=== PATIENT | male | born 1955 | race Caucasian/White ===

== ENCOUNTER 2020-01-18 18:41 | Emergency (ER) | payer OTHER ==
[2020-01-18 20:15] LABS: #Eosinphils 0.2 thou/uL (0.0-0.7); #Lymphocytes 1.2 thou/uL (1.20-3.40); #Monocytes 0.9 thou/uL (0.11-0.59); #Neutrophils 5.5 thou/uL (1.40-6.50); %Basophils 0.6 % (0.0-1.0); %Eosinophils 2.1 % (0.0-10.0); %Lymphocytes 15.7 % (21.0-51.0); %Monocytes 11.5 % (0.0-10.0); %Neutrophils 70.1 % (42.0-75.0); Hemoglobin 13.1 g/dL (14.0-18.0); Mean Corpuscular HGB CONC 33.3 g/dL (32.0-36.0); Mean Platelet Volume 5.7 fL (7.4-10.4); Platelet Count 334 thou/uL (130-400); RBC Distribution Width 12.3 % (11.5-14.5); Red Blood Cell (RBC) Count 4.09 mill/uL (4.70-6.10); White Blood Cell (WBC) Count 7.8 thou/uL (4.8-10.8)
[2020-01-18 20:37] LABS: ALT (SGPT) 11 U/L (8-55); AST (SGOT) 14 U/L (5-34); Albumin 3.3 g/dL (3.4-4.8); Alkaline Phosphatase 82 U/L (40-110); Anion Gap 11 mmol/L (10-20); BUN (Urea Nitrogen) 13 mg/dL (8.4-25.7); Bilirubin, Total 0.2 mg/dL (0.2-1.2); Calc. Creatinine Clearance 0 mL/min (70-130); Calcium 8.7 mg/dL (7.8-10.44); Carbon Dioxide 21 mmol/L (23-31); Chloride 108 mmol/L (98-107); Estimated GFR-MDRD Greater than 90; Globulin 3.2 g/dL (2.4-3.5); Glucose 99 mg/dL (80-115); Potassium 4.2 mmol/L (3.5-5.1); Protein, Total 6.5 g/dL (5.8-8.1); Sodium 136 mmol/L (136-145)
[2020-01-18] MEDS ORDERED: tiZANidine HCl 4 MG TAB PO SCH (23:45)
[2020-01-19] MEDS ORDERED: traMADol HCl 50 MG TAB ONE (00:04)
== END 2020-01-19 00:14 | disposition home or self-care (01) ==
LOC: ERS 18:41
DX: T81.89XA Other complications of procedures, not elsewhere classified, initial encounter (principal); M19.90 Unspecified osteoarthritis, unspecified site; F32.9 Major depressive disorder, single episode, unspecified; F41.9 Anxiety disorder, unspecified; Z87.891 Personal history of nicotine dependence; Z79.899 Other long term (current) drug therapy
CPT/HCPCS: 36415; 80053; 83605; 85025; 99283

== ENCOUNTER 2020-02-22 09:46 | Outpatient (CLI) | payer OTHER ==
--- NOTE | 2020-02-22 10:03 | RAD ---
EXAM: 3 view cervical spine PROVIDED CLINICAL HISTORY: Postop COMPARISON: CT 12/16/2019 FINDINGS: Interval laminectomy changes from C3 through C5. Grade 1 anterolisthesis C4 on C5. Reversal of normal cervical lordosis. Vertebral body heights appear preserved. Disc space narrowing and endplate degenerative change at C4-5, C5-6 and C6-7 redemonstrated. No prevertebral soft tissue swelling appar ent. Visualized lung apices appear clear. IMPRESSION: Postoperative and degenerative change as above.
== END 2020-02-22 09:47 | disposition home or self-care (01) ==
LOC: TBSIIMAG 09:46
PROVIDERS: ATTEND Neurological Surgery
DX: M47.22 Other spondylosis with radiculopathy, cervical region (principal); Z98.890 Other specified postprocedural states
CPT/HCPCS: 72040

== ENCOUNTER 2020-04-07 12:36 | Outpatient (CLI) | payer OTHER ==
--- NOTE | 2020-04-07 14:54 | RAD ---
LUMBAR SPINE 3 VIEWS: INDICATION: History of lumbar spondylolisthesis. COMPARISON: Prior exam dated 11/29/2019. FINDINGS: The bilateral pars defect at L4 with grade I anterolisthesis appears similar-appearing. Advanced mul tilevel degenerative disk disease and facet osteoarthritic change is similar-appearing. Mild retroli sthesis is seen on L3 on L4 and L2 on L3 and L1 on L2 as well as T12 on L1. There is slight reductio n of the retrolisthesis of L1 on L2 and T12 on L1 with flexion without appreciable exacerbation with extension. IMPRESSION: 1. Severe multilevel spondylosis of the lumbar spine with bilateral pars defects at L4 with grade I anterolisthesis. No abnormal translational motion is evident at L4-5. 2. Mild retrolisthesis of T1 on L1, L1 on L2, L2 on L3, and L3 on L4 with the retrolisthesis of L1-L 2 and T12-L1 slightly reducing with flexion. POS: BH
--- NOTE | 2020-04-07 17:05 | MRI ---
MR OF THE LUMBAR SPINE WITHOUT CONTRAST: 04/07/20 INDICATION: History of right sided foot drop for eight months with history of a fall. COMPARISON: Lumbar radiograph dated 04/07/20. FINDINGS: No acute fracture is evident. There are bilateral pars defects at L4 with grade I anterolisthesis. Th ere is mild retrolisthesis of L3 on L4, L2 on L3, and L1 on L2 and T12 on L1. There is a prominent cystic abnormality seen adjacent to the right kidney possibly originating from t he liver or right kidney. An additional T2 hyperintense lesion is seen in the right hepatic lobe cheng uring 1.3 cm. The cystic abnormality adjacent to the right kidney measures 10.4 cm. There is a small partially imaged cystic abnormality involving the superior pole of the left kidney measuring approxim ately 1.3 cm. At L5-S1, there is severe facet joint degenerative change, right greater than left with a broad based bulge and loss of disc space height inducing mild left neural foraminal narrowing. At L4-5, there is grade I anterolisthesis. There is a broad based pseudobulge and loss of disc space heights inducing mild to moderate bilateral neural foraminal narrowing. At L3-4, there is a broad based disc osteophyte complex with facet hypertrophy inducing mild central canal narrowing and mild bilateral neural foraminal narrowing. At L2-3, there is a broad based disc osteophyte complex and facet joint degenerative change inducing mild neural foraminal narrowing bilaterally. At L1-2, there is a broad based disc osteophyte complex with a superimposed right paracentral disc ex trusion causing mild encroachment on the right lateral recess without definite impingement of the tra versing right L2 nerve root. The disc osteophyte complex and facet hypertrophy induces mild to modera te right neural foraminal narrowing. At T12-L1, there is a broad based disc osteophyte complex causing mild central canal narrowing. There is a superimposed right paracentral disc extrusion measuring 1.0 x 0.9 cm. Best seen on image 11 of series 3 and image 14 of series 6 causing mild effacement of the right ventral lateral thecal sac wit hout definite nerve root impingement. Broad based disc osteophyte complex and facet hypertrophy induc es mild bilateral neural foraminal narrowing. At T11-12, there is an asymmetric left disc osteophyte complex inducing mild bilateral neural forami nal narrowing. There is also mild effacement of the subarachnoid space without cord compression. IMPRESSION: 1. Severe multilevel spondylosis of the lumbar spine. 2. Right paracentral caudad extending disc extrusion at L1-2 induces mild to moderate narrowing of the right lateral recess without definite impingement of the traversing right L2 nerve root. 3. Right paracentral inferior projecting disc extrusion at T12-L1 with mild effacement of the th ecal sac but no appreciable nerve root impingement. 4. Multilevel neural foraminal narrowing most pronounced at L4-5. There is bilateral pars defect s at L4-5 with grade I anterolisthesis. 5. Prominent cystic abnormalities, adjacent to the right kidney possibly related to an inferior projecting hepatic cyst or right renal cyst. Further evaluation with CT of the abdomen and pelvis wit h and without contrast is recommended for further characterization. There are additional cystic type abnormalities that require further evaluation in the superior pole of the left kidney as well as the right hepatic lobe. Code T POS: JACOBO
== END 2020-04-07 12:37 | disposition home or self-care (01) ==
LOC: TBSIIMAG 12:36
PROVIDERS: ATTEND Neurological Surgery
DX: M43.16 Spondylolisthesis, lumbar region (principal); M47.816 Spondylosis without myelopathy or radiculopathy, lumbar region; M43.14 Spondylolisthesis, thoracic region; M43.06 Spondylolysis, lumbar region; M43.15 Spondylolisthesis, thoracolumbar region; M51.26 Other intervertebral disc displacement, lumbar region; N28.1 Cyst of kidney, acquired
CPT/HCPCS: 72100; 72148

== ENCOUNTER 2020-05-18 08:41 | Outpatient (CLI) | payer OTHER ==
--- NOTE | 2020-05-18 10:33 | CT ---
CT Abdomen Pelvis WO Con: 05/18/2020 12:00 AM HISTORY: Hepatitis C and drug abuse. History of cyst seen on MRI. COMPARISON: MRI lumbar spine 04/07/2020 TECHNIQUE: Multiple contiguous axial images were obtained and a CT of the abdomen and pelvis without IV contrast . IV access could not be obtained for contrast. Oral contrast was administered. 6Coronal and sagittal reformats were performed. FINDINGS: This examination is limited for the evaluation of solid organs and vascular structures due to the lac k of intravenous contrast. Lower Chest: within normal limits. Abdomen: There is a large 14.7 cm cyst which abuts the right lower liver and the right kidney. It is difficult to determine from which organ this cyst arises but the cyst appears benign. Liver: 1.2 cm hypodensity likely represents a cyst. Bile Ducts: Normal caliber. Gallbladder: No calcified gallstones. Normal caliber wall. Pancreas: within normal limits. Spleen: within normal limits. Adrenals: within normal limits. Kidneys: within normal limits. Pelvis: Reproductive Organs: No pelvic masses. Ureters: within normal limits. Bladder: within normal limits. Bowel: Normal caliber. Normal appendix. Mesenteric Lymph Nodes: No enlarged mesenteric lymph nodes. Peritoneum: No ascites or free air, no fluid collection. Vessels: Atherosclerotic calcifications in the aorta Retroperitoneum: within normal limits. Abdominal Wall: within normal limits. Bones: Degenerative changes in the spine. IMPRESSION: Large cystic lesion in the right abdomen. This could represent a renal or hepatic cyst and appears be nign.
== END 2020-05-18 08:42 | disposition home or self-care (01) ==
LOC: BICCT 08:41
PROVIDERS: ATTEND Family Medicine
DX: N28.1 Cyst of kidney, acquired (principal); R19.00 Intra-abdominal and pelvic swelling, mass and lump, unspecified site
CPT/HCPCS: 74176

== ENCOUNTER 2020-07-03 14:30 | Inpatient (IN) | payer OTHER ==
--- NOTE | 2020-09-18 10:31 | HP ---
REASON FOR HISTORY AND PHYSICAL: Surgery on 09/19/2020, case #[id number]. HISTORY OF PRESENT ILLNESS: Mr. Morris is a 65-year-old gentleman, with many years of lower back pain. Describes the back pain greater on the right than on the left. Standing has become so difficult that he can only walk a few feet before he has a sit down or lean over to ease his pain. His radiculopathy is greater on the right than on the left being caused by spondylolisthesis and foraminal stenosis along with a synovial cyst. He denies any bladder or bowel dysfunction. REVIEW OF SYSTEMS: CONSTITUTIONAL: Denies fever or chills. ENT: Denies change in vision or hearing. CARDIAC: Denies chest pain, shortness of breath, or diaphoresis. PULMONARY: Denies shortness of breath, cough, or hemoptysis. GASTROINTESTINAL: Denies abdominal pain, nausea, vomiting, diarrhea, change in stool formation and consistency. GENITOURINARY: Denies trouble with urination, frequency of urination, bloody urine. SKIN: Denies skin rash, bruising, bleeding, or skin masses. MUSCULOSKELETAL: As per History of Present Illness. NEUROLOGICAL: As per History of Present Illness. PSYCHOLOGICAL: Denies anxiety, depression, or behavior changes. PAST MEDICAL HISTORY: Depression, anxiety, history of alcohol and drug abuse, and positive hepatitis C. PAST SURGICAL HISTORY: LIH repair with mesh, Dr. Duran on 12/16/2013; colonoscopy, Dr. Yates on 11/29/2016; and cervical laminectomy C2 through C6 in 2019, Dr. Strange. HOSPITALIZATIONS: As above surgeries. FAMILY HISTORY: Father , diagnosed with diabetes. Mother alive, unknown type of cancer. Son, alive. Daughter, alive. Two sons, one daughter healthy. SOCIAL HISTORY: Smokes cigarillo daily. Denies alcohol use. Denies illicit drug use. MEDICATIONS: 1. Polyethylene glycol. 2. Methadone 40 mg. 3. Naproxen 220 mg. 4. Ibuprofen 800 mg. ALLERGIES: NO KNOWN DRUG ALLERGIES. PHYSICAL EXAMINATION: VITAL SIGNS: Weight 125, height 70, and BMI is 17.93. HEENT: Pupils are equal. NECK: Normal, soft, supple. No masses are noted. Range of motion is intact and nonpainful. NEUROLOGIC: Awake, alert, and oriented x3. Memory, attention, fund of knowledge, and language are normal. Cranial nerves grossly intact. Gait and station, walking but off balance. Motor exam, there is some quad/AT weakness. There is some gastroc weakness. The hip flexors are strong. Sensory exam, numbness below the knees, worse on the left. IMAGING: MRI of L-spine, lateral recess spinal stenosis L3-L4, L4-L5. Foraminal collapse at L4-L5 and left L5-S1. Listhesis L4-L5, results in a foraminal collapse. X-ray of L-spine, flexion and extension are stable. ASSESSMENT: 1. Spondylolisthesis of the lumbar region. 2. Lumbar stenosis with neurogenic claudication. 3. Osseous and subluxation stenosis of intervertebral foraminal lumbar region. 4. Subluxation stenosis of the neural canal of the lumbar region. PLAN: 1. Laminectomy L3 through S1. Transforaminal lumbar interbody fusion left L4- L5. 2. Preop lab; CBC, PT, PTT, COVID-19 testing. 3. Anesthesia clearance. INFORMED CONSENT: We discussed the indications, risks, benefits, alternatives, and expected results from surgery. The risks discussed included, but were not limited to, bleeding, infection, CSF leak, nerve damage, weakness, incontinence, cauda equina injury, arachnoiditis, paralysis, ventilator dependency, wheelchair dependency, loss of vision, hardware misplacement, cardiopulmonary complications of anesthesia, or . Long-term complications discussed included, but were not limited to, degradation of surrounding disk and future surgery. He understands the risks and is willing to proceed. Job ID: [id number] [facility]
[2020-09-19] MEDS ORDERED: Thrombin 5000 UNITS/5 ML VIAL ONE (06:10)
[2020-09-19] MEDS ORDERED: EPINEPHrine 1 MG/ML AMP ONE (06:20)
[2020-09-19] MEDS ORDERED: Bupivacaine PF 0.5% 30 ML VIAL ONE (06:20)
[2020-09-19] MEDS ORDERED: METHadone HCl 10 MG TAB PO SCH (07:00)
[2020-09-19] MEDS ORDERED: Fentanyl 100 MCG/2 ML VIAL ONE (07:10)
[2020-09-19] MEDS ORDERED: Ondansetron HCl/PF 4 MG/2 ML Vial IVP PRN (12:15)
[2020-09-19] MEDS ORDERED: HYDROmorphone 2 MG/ML VIAL SLOW IVP PRN (12:15)
[2020-09-19] MEDS ORDERED: SUGAMMADEX SODIUM 200 MG/2 ML VIAL ONE (12:38)
[2020-09-19] MEDS ORDERED: Dexamethasone 20 MG/5 ML VIAL ONE (12:39)
[2020-09-19] MEDS ORDERED: Ketorolac Tromethamine 30 MG/ML VIAL ONE (12:39)
[2020-09-19] MEDS ORDERED: PROPOFOL 200 MG/20 ML VIAL ONE (12:39)
[2020-09-19] MEDS ORDERED: Ondansetron PF 4 MG/2 ML Vial ONE ×2 (12:39→16:02)
[2020-09-19] MEDS ORDERED: Rocuronium Bromide 10 MG/ML (10ML VIAL) ONE (12:39)
[2020-09-19] MEDS ORDERED: Lidocaine 1% PF 5 ML VIAL ONE (12:39)
[2020-09-19] MEDS ORDERED: Mag-Al 1200 mg/1200 mg/30 ML UDCUP PO PRN (13:10)
[2020-09-19] MEDS ORDERED: Acetaminophen 325 MG TAB PO PRN (13:10)
[2020-09-19] MEDS ORDERED: Scopolamine 1.5 mg/72 hour Patch TD PRN (13:10)
[2020-09-19] MEDS ORDERED: Promethazine HCl 25 MG/ML VIAL IM PRN (13:10)
[2020-09-19] MEDS ORDERED: Promethazine 25 MG TAB PO PRN (13:10)
[2020-09-19] MEDS ORDERED: Tamsulosin HCl 0.4 MG CAP PO PRN (13:10)
[2020-09-19] MEDS ORDERED: diphenhydrAMINE 25 MG CAP PO PRN (13:10)
[2020-09-19] MEDS ORDERED: tiZANidine HCl 4 MG TAB PO PRN (13:10)
[2020-09-19] MEDS ORDERED: Milk Of Magnesia 30 ML UDCUP PO PRN (13:10)
[2020-09-19] MEDS ORDERED: Fentanyl 100 MCG/2 ML VIAL SLOW IVP PRN (13:17)
[2020-09-19] MEDS ORDERED: Naloxone HCl 0.4 mg/ml Vial ONE ×2 (14:51→14:56)
[2020-09-19] MEDS ORDERED: HYDROmorphone 0.5 MG/0.5 ML SYRINGE ONE ×3 (15:57→16:32)
[2020-09-19 18:28] VITALS: BMI 18.3
--- NOTE | 2020-09-19 18:44 | OP ---
DATE OF PROCEDURE: 09/19/2020 BOAT DECKHAND: Rd Romero PA-C. PREOPERATIVE INDICATION: Treat pain and prevent neurological deterioration. PREOPERATIVE DIAGNOSES: Lumbar lateral recess stenosis at multiple levels with neurogenic claudication, spondylolisthesis at L4-L5 with resulting foraminal stenosis, L4 radiculopathies, foraminal stenosis at L5-S1 with L5 radiculopathies. POSTOPERATIVE DIAGNOSES: Lumbar lateral recess stenosis at multiple levels with neurogenic claudication, spondylolisthesis at L4-L5 with resulting foraminal stenosis, L4 radiculopathies, foraminal stenosis at L5-S1 with L5 radiculopathies. PROCEDURES PERFORMED: 1. Decompressive laminectomy with medial facetectomy and foraminotomy at L3-L4, L4-L5, L5-S1 (decompression separate from stabilization). 2. Transforaminal lumbar interbody arthrodesis, L4-L5. 3. Placement of intervertebral biomechanical device, L4-L5. 4. Posterolateral arthrodesis, L4-L5. 5. Pedicle screw and yehuda instrumentation, L4-L5. 6. Local morselized autograft, morselized allograft. PREOPERATIVE MEDICATIONS: Ancef 2 g IV. DRAIN NUMBER: Zero. DRAIN TYPE: None. DESCRIPTION OF PROCEDURE: The patient was brought to the operating room. General endotracheal anesthesia was induced. The patient was carefully positioned prone on the Rodríguez frame with the appropriate padding to support the chest and hips. A lateral fluoro radiograph was used to plan our incision. The lumbar skin was sterilely prepped and draped. We opened with a 10 blade knife and we controlled bleeding with bipolar and monopolar cautery. We used monopolar cautery to dissect through subcutaneous tissues to the thoracodorsal fascia. We incised the fascia in the midline and reflected the paraspinal muscles off the spinous process and laminae of L3, L4, L5, and S1. We carried our dissection over the facet joints to identify the transverse processes of L4 and L5 as well as the sacral ala. We irrigated with bacitracin irrigation. We took a lateral fluoro radiograph to confirm the levels upon which we were operating. With the self-retaining retractor in place, we turned our attention to the first portion of the procedure, which was decompression. To decompress, we used an Adson rongeur and removed spinous processes from L3 to the top of the sacrum. Kerrison rongeurs were used to perform laminectomy down the midline. To decompress the lateral recesses, we had to perform medial facetectomies on both sides at L3-L4, L4-L5, and L5-S1. We ensured that a Stewart ball probe could pass through the lateral recess and out the foramen with each of the nerve roots. We paid particular attention to the L5 foramina. It was unclear on preoperative imaging whether we would be able to obtain adequate decompression of the L5 nerve roots or the lumbosacral interspace would need to be enlarged with the interbody device. The right-sided foramen was opened with a foraminotomy Kerrison. We passed a Stewart ball probe out the foramen with the nerve root. There did not seem to be significant impingement. On the left side, there was a structure blocking the passage of the Stewart ball probe. This was likely a facet joint cyst that had grown into the distal portion of the foramen. We performed a wide foraminotomy over the L5 nerve root. We reached with a foraminotomy Kerrison to the distal end of the foramen and found a synovial cyst. We removed the wall of the cyst with the foraminotomy Kerrison, and a Stewart ball probe could pass out the foramina. We did not adversely affect the stability of the facet joint. We assessed the stability with a perforating towel clip on the sacrum and tried to move it independent of the L5 segment and they seemed to move in unison. If there is recurrent cyst growth or foraminal stenosis from collapse, he will have to be brought back for further surgery. We then turned our attention to the spondylolisthesis resulting in bilateral L4 nerve root compression. In order to perform the interbody arthrodesis, we had to remove bone in the facet joint on the right at L4-L5. This was a separate decompression from the decompression required for the canal. This decompression would give us access to the intervertebral space. With the bone out of the way, we incised the disk space with an 11 blade knife and removed disk contents using curettes and rongeurs. There was not a significant amount of disk. With a rectangular-shaped bone rasp, we advanced into the interspace and twisted the bone rasp to remove cartilaginous endplates. We distracted up to 9 mm, which is a significant improvement in the foraminal height on either side. A 9 mm PEEK intervertebral graft was brought into the field. Laminectomy bone was cleaned of soft tissue attachments, morselized and added to demineralized bone matrix to form our fusion substrate. The substrate was placed in the center of the PEEK graft and that graft was advanced into the interspace to the appropriate depth under radiographic guidance. We turned our attention to pedicle screw instrumentation. Using bony anatomic landmarks, palpation of the medial portion of the pedicles, and a lateral fluoro radiograph as our guide, we chose entry points for the pedicle screws at L4 and L5 bilaterally. We drilled out our entry points with a high- speed drill and used a bone awl to advance through the pedicles into the vertebral bodies. We used a threaded tap to tap our trajectories, and probed it with a ball probe. Each trajectory was completely encased in bone. We placed 6.5 x 60 mm screws at L4 and 6.5 x 55 mm screws at L5 bilaterally. A 360-degree image set was generated with our isocentric C-arm, confirming adequate positioning of our instrumentation. We irrigated with bacitracin irrigation. We decorticated the transverse processes of L4 and L5 bilaterally. We placed rods in the screw heads and tightened caps over the rods using a torque/counter-torque mechanism to ensure adequate tightness. Very gentle compression across the interspace was applied before final tightening to ensure interbody graft stayed in place. We left demineralized bone matrix and morselized autograft over the decorticated bone in the lateral recesses. This was our posterolateral fusion substrate. This was all done after copious amounts of irrigation. We controlled bleeding with gentle bipolar cautery. We ensured a Stewart ball probe could pass out the L4 foramina with each of the two nerve roots. They were not compressed whatsoever. We treated the wound with vancomycin powder, infused local anesthetic in the paraspinal muscles, and we closed in anatomical layers. We applied a sterile dressing. This was a clean case, no contamination. This was visible in the preoperative scan and the reason for which, we pursued approval for possible fusion at the lumbosacral interspace. Unfortunately, the patient's insurance company denied that without review of the films. Job ID: [id number] [facility]
[2020-09-19] MEDS: CEFAZOLIN 2 GM in Premix Bag 1 BAG IVPB SCH ×2 (19:21→21:36)
[2020-09-19] MEDS: HYDROcodone/Acetaminophen 10/325 mg Tablet PO PRN (19:44)
[2020-09-19] MEDS: Sodium Chloride 0.9% 1,000 ML IV SCH (19:45)
[2020-09-20] MEDS: HYDROcodone/Acetaminophen 10/325 mg Tablet PO PRN ×4 (02:15→22:41)
[2020-09-20] MEDS: Sodium Chloride 0.9% 1,000 ML IV SCH ×2 (02:17→18:24)
[2020-09-20] MEDS ORDERED: FLU VACC QS2020-21(6MOS UP)/PF 60 MCG/0.5 ML SYRINGE IM ONE (09:00)
[2020-09-20] MEDS ORDERED: METHADONE HCL PO SCH (09:00)
[2020-09-20] MEDS: METHadone HCl 10 MG TAB PO SCH (09:14)
--- NOTE | 2020-09-20 09:20 | PRG ---
DATE OF SERVICE: 09/20/2020 I saw Mr. Valentino Morris in his hospital room this morning. He is one day out from decompression fusion of the lumbar spine. Mr. Morris says the right hemibody stiffness from his myelopathy remains, but that radiating pain from his back down the legs is gone. He has gotten out of bed with assistance yesterday. The highest temperature recorded is 99.9 degrees Fahrenheit. Blood pressures have ranged between 100s and 130s. I do not find any new deficits on neurological examination. The plan today is to mobilize with physical therapy. Mr. Morris would benefit from inpatient rehabilitation and a transfer from our facility to inpatient rehab is the plan for discharge. Job ID: [id number] [facility]
[2020-09-20] MEDS: Polyethylene Glycol 3350 17 GM Packet PO PRN (10:31)
[2020-09-21] MEDS: HYDROcodone/Acetaminophen 10/325 mg Tablet PO PRN ×4 (06:09→22:05)
[2020-09-21] MEDS: Sodium Chloride 0.9% 1,000 ML IV SCH ×2 (06:10→18:14)
--- NOTE | 2020-09-21 08:07 | PRG ---
DATE OF SERVICE: 09/21/2020 I saw Mr. Morris in his hospital room this morning. He got out of bed yesterday and walked toward the hallway, leaving the door of his room, but he did not walk around the hallways. He still feels weak on the right and stiff and believes this hemiparesis with spasticity is related to cervical spinal cord dysfunction. There is no radiating pain down the legs, but the back is sore from surgery. Among the vital signs on the electronic record, I do not see any fevers recorded. Blood pressures have been 120s to 150s. There is some increased muscle tone and weakness on the right side in the upper motor neuron distribution, but it is no different from what it was before surgery. There is no radicular pain down the legs currently and that is an improvement. There is good motor function on the left lower extremity. There is good sensation to touch throughout the lumbar dermatomes. Mr. Morris will benefit from inpatient rehabilitation and a transfer could be made at any time. Job ID: [id number] [facility]
[2020-09-21] MEDS: METHadone HCl 10 MG TAB PO SCH (08:08)
[2020-09-21] MEDS: Polyethylene Glycol 3350 17 GM Packet PO PRN (08:09)
[2020-09-22] MEDS: HYDROcodone/Acetaminophen 10/325 mg Tablet PO PRN ×5 (02:09→20:24)
[2020-09-22] MEDS: Sodium Chloride 0.9% 1,000 ML IV SCH ×2 (03:33→22:31)
--- NOTE | 2020-09-22 07:07 | PRG ---
DATE OF SERVICE: 09/22/2020 Mr. Morris is 3 days out from decompression and fusion of the lumbar spine. There is no radicular pain in his legs. His spastic paresis from his cervical myelopathy is still there, but the radiating leg pain has gone. His vitals have been stable, his neurological examination is as well. Mr. Morris is ready for placement in inpatient rehabilitation. If that transfer can be made today, it should happen. Job ID: [id number]
[2020-09-22] MEDS: METHadone HCl 10 MG TAB PO SCH (07:20)
[2020-09-22] MEDS: Polyethylene Glycol 3350 17 GM Packet PO PRN (10:59)
[2020-09-23] MEDS: HYDROcodone/Acetaminophen 10/325 mg Tablet PO PRN ×6 (00:19→22:13)
[2020-09-23] MEDS: METHadone HCl 10 MG TAB PO SCH (08:00)
[2020-09-23] MEDS: Polyethylene Glycol 3350 17 GM Packet PO PRN (08:02)
--- NOTE | 2020-09-23 09:46 | PRG ---
DATE OF SERVICE: 09/23/2020 SUBJECTIVE: Patient is now postoperative day #4 from his decompression and fusion of the lumbar spine. He reports his pain is well controlled with p.o. medications. He is tolerating a regular diet and voiding appropriately. He has been working with Physical Therapy and ambulating short distances in the hallway. Plan is for inpatient rehab at some point. OBJECTIVE: On exam, vital signs stable. He has been afebrile. He has free active range of all extremities. No focal motor weakness in the bed. PLAN: We will continue to mobilize appropriately and have him work with PT and OT while he is inpatient towards placement in inpatient rehab, which I anticipate likely Friday as we are currently waiting on insurance authorization. Job ID: [id number]
[2020-09-23] MEDS: Sodium Chloride 0.9% 1,000 ML IV SCH (10:22)
[2020-09-24] MEDS: HYDROcodone/Acetaminophen 10/325 mg Tablet PO PRN ×6 (01:08→23:38)
[2020-09-24] MEDS: Sodium Chloride 0.9% 1,000 ML IV SCH ×2 (01:11→12:38)
--- NOTE | 2020-09-24 07:21 | PRG ---
DATE OF SERVICE: 09/23/2020 I visited Mr. Morris. He is resting comfortably and his pain has been well controlled. He feels he has been improving since the surgery. We are awaiting inpatient rehab. Job ID: [id number]
[2020-09-24] MEDS: METHadone HCl 10 MG TAB PO SCH (08:07)
[2020-09-24] MEDS: Polyethylene Glycol 3350 17 GM Packet PO PRN (08:10)
--- NOTE | 2020-09-24 10:55 | PRG ---
DATE OF SERVICE: 09/24/2020 The patient is now postoperative day #5. He is doing well and has minimal pain and is ambulating with his walker. He is tolerating regular diet and voiding appropriately. Vital signs are stable. He is not having any incisional issues. He is moving well with good strength throughout the bed. Continue to mobilize and work with PT and OT. Hopefully, we will get an answer for inpatient rehabilitation tomorrow. Job ID: [id number]
[2020-09-25] MEDS: Sodium Chloride 0.9% 1,000 ML IV SCH ×2 (01:44→16:00)
[2020-09-25] MEDS: HYDROcodone/Acetaminophen 10/325 mg Tablet PO PRN ×4 (03:47→20:11)
--- NOTE | 2020-09-25 06:48 | PRG ---
DATE OF SERVICE: 09/25/2020 Mr. Morris is 6 days out from decompression fusion of lumbar spine. He has been anticipated to leave to inpatient rehabilitation any day for the last 4 days. He is ready to do so today and it seems as though there may be a bed available for him. His vitals are stable. His neurological examination is well. He is ready to move to inpatient rehab. Job ID: [id number]
[2020-09-25] MEDS: METHadone HCl 10 MG TAB PO SCH (08:12)
[2020-09-25] MEDS: Polyethylene Glycol 3350 17 GM Packet PO PRN (08:14)
[2020-09-26] MEDS: HYDROcodone/Acetaminophen 10/325 mg Tablet PO PRN ×3 (00:17→15:48)
[2020-09-26] MEDS: Sodium Chloride 0.9% 1,000 ML IV SCH (04:19)
--- NOTE | 2020-09-26 07:18 | PRG ---
DATE OF SERVICE: 09/26/2020 I saw Mr. Morris in his hospital room this morning. He is a week out from decompression fusion of lumbar spine and has been waiting for inpatient rehabilitation and placement. He needs this to regain independence and work on his activities of daily living. He has still not been transferred. Vital signs have been stable. His neurological examination is stable as well. He has a right-sided spasticity and hemiparesis from previous cervical spinal cord injury, but even that is slowly improving over the months we have been following him. He needs to be transferred. Job ID: [id number]
[2020-09-26] MEDS: METHadone HCl 10 MG TAB PO SCH (08:24)
[2020-09-26] MEDS: Polyethylene Glycol 3350 17 GM Packet PO PRN (08:25)
[2020-09-26 17:00] VITALS: BP 120/71; TEMP 98.2
--- NOTE | 2020-09-27 19:11 | EKG ---
Test Reason : PREOP Blood Pressure : / mmHG Vent. Rate : 058 BPM Atrial Rate : 058 BPM P-R Int : 160 ms QRS Dur : 080 ms QT Int : 458 ms P-R-T Axes : 074 056 065 degrees QTc Int : 449 ms Sinus bradycardia Otherwise normal ECG Confirmed by MAURICE PITT, DR. Murguia (4) on 09/27/2020 7:11:24 PM Referred By: SHARA Confirmed By:DR. Shantal RICHARDS MD
--- NOTE | 2020-09-28 02:47 | DIS ---
DATE OF ADMISSION: 09/19/2020 DATE OF DISCHARGE: 09/26/2020 HOSPITAL COURSE: Mr. Morris is a 65-year-old gentleman, who underwent a laminectomy and foraminotomy at L3-4, L4-5, L5-S1 and a transforaminal lumbar interbody arthrodesis, L4 to L5. He is currently 1 week out from his decompression and fusion of the lumbar spine and has been waiting for inpatient rehabilitation and placement. Following his surgery, he was transitioned to the med/surg floor where his pain has been well controlled with p.o. medications. He is tolerating a regular diet and is voiding appropriately. He is otherwise doing well, ambulating easily in the hallways with Physical Therapy, and he has been waiting to go to inpatient rehabilitation. PHYSICAL EXAMINATION: On exam today, he is awake, alert, in no acute distress. He has free active range of motion of all his extremities. No focal motor weakness. No reflex asymmetry. His incision is clean, dry, and intact. We will be planning to dismiss Mr. Morris to inpatient rehabilitation today. I have discussed home care precautions with him. CONDITION ON DISCHARGE: The patient had no emergencies. Condition was stable for discharge. MEDICATIONS: Home going medications were reviewed. FOLLOWUP: Followup arrangements made by our physical therapy coordinator in the clinic and call to the patient. ACTIVITIES: Restrictions were reviewed in person. Wound care showers are acceptable. The patient should pat the incision dry, but not submerge it under the surface of the body of water for 1 month. Job ID: [id number] [facility]
--- NOTE | 2020-09-28 04:35 | PQF ---
CLINICAL DOCUMENTATION CLARIFICATION FORM: Dear : Jeffy Strange Date / Time: 09/28/2020 5690 Please exercise your independent, professional judgment in responding to the clarification form. Clinical indicators are provided on the bottom of this form for your review Please check appropriate box(es): [ ] Protein Calorie Malnutrition: [ ] Mild [ ] Moderate [ ] Severe [ ] Other Malnutrition (please specify) [ ] Underweight without malnutrition [ ] Cachexia [ ] Other diagnosis [ ] Unable to determine In addition, please specify: Present on Admission (POA): [ ] Yes [ ] No [ ] Unable to determine Physician Signature: Date/Time: For continuity of documentation, please document condition throughout progress notes and discharge summary. Thank You. To be completed by CDI/Coding staff for physician review: Present Clinical Indicators - Signs / Symptoms / Labs Results and Location in Medical Record [X] BP 131/77, Pulse 81, Rest 18, Temp 99.9 Vital signs 09/19 [X] BMI of 18.3 Nutritional assessment Dietitian Graham 09/21 [X] Severe muscle and fat wasting to upper extremities, trunk and face Nutritional assessment Dietitian Graham 09/21 [X] Underweight Nutritional assessment Dietitian Faison 09/21 [X] Severe fat loss to orbital region and ribs and severe muscle wasting to temples, clavicles and shoulders suggestive of severe malnutrition in the context of chronic illness Nutritional assessment Dietitian Graham 09/21 Present Risk Factors Results and Location in Medical Record [X] 65 year-old Male H&P p1 09/18 Dr Romero [X] Hepatitis C H&P p1 09/18 Dr Romero [X] Anxiety and depression H&P p1 09/18 Dr Romero [X] Smoker H&P p1 09/18 Dr Romero Present Treatments Results and Location in Medical Record [X] Dietary consult Nutritional assessment Dietitian Graham 09/21 [X] Nutritional supplements Nutritional assessment Dietitian Graham 09/21 [X] Weight monitoring Nutritional assessment Dietitian Graham 09/21 [X] Oral intake monitoring Nutritional assessment Dietitian Faison 09/21 [X] Appetite stimulant - medication Nutritional assessment Dietitian Santos 09/21 CDS/Draw Operator Signature: Rosalie Yin Phone #: [phone] Date/Time: 09/28/2020 0435 Moderate Malnutrition (in acute illness) ? Energy Intake: <75% of estimated energy requirement for > 7 days ? Weight Loss: 1-2%/1 week; 5%/ 1 month; 7.5%/3 months ? Other: mild body fat loss; mild muscle mass loss; mild fluid accumulation; Severe Malnutrition (in acute illness) ? Energy Intake: ? 50% of estimated energy requirement for ? 5 days ? Weight Loss: >2%/1 week; >5%/1 month; >7.5%/3 months ? Other: moderate body fat loss; moderate muscle mass loss; moderate- severe fluid accumulation; measurably reduced trimmer loader strength Moderate Malnutrition (in chronic illness) ? Energy Intake: <75% of estimated energy requirement for ?1 month ? Weight Loss: 5%/1 month; 7.5%/3 months; 10%/6 months; 20%/1 year ? Other: mild body fat loss; mild muscle mass loss; mild fluid accumulation Severe Malnutrition (in chronic illness) ? Energy Intake: ?75% of estimated energy requirement for ?1 month ? Weight Loss: >5%/1 month; >7.5%/3 months; >10%/6 months; >20%/1 year ? Other: severe body fat loss; severe muscle mass loss; severe fluid accumulation; measurably reduced trimmer loader strength This is a permanent part of the Medical Record [facility]
== END 2020-09-26 17:35 | DRG 454 ==
LOC: SURG A 09-19 05:34
PROVIDERS: ADMIT Neurological Surgery; ATTEND Neurological Surgery
PROC: 0SG00AJ Fusion of Lumbar Vertebral Joint with Interbody Fusion Device, Posterior Approach, Anterior Column, Open Approach (ICD-10-PCS; principal; 2020-09-19)
PROC: 0SG0071 Fusion of Lumbar Vertebral Joint with Autologous Tissue Substitute, Posterior Approach, Posterior Column, Open Approach (ICD-10-PCS; 2020-09-19)
PROC: 0SB20ZZ Excision of Lumbar Vertebral Disc, Open Approach (ICD-10-PCS; 2020-09-19)
PROC: 01NB0ZZ Release Lumbar Nerve, Open Approach (ICD-10-PCS; 2020-09-19)
PROC: 01NR0ZZ Release Sacral Nerve, Open Approach (ICD-10-PCS; 2020-09-19)
PROC: 3E02340 Introduction of Influenza Vaccine into Muscle, Percutaneous Approach (ICD-10-PCS; 2020-09-20)
DX: M48.062 Spinal stenosis, lumbar region with neurogenic claudication (principal); G99.2 Myelopathy in diseases classified elsewhere; G81.91 Hemiplegia, unspecified affecting right dominant side; M43.16 Spondylolisthesis, lumbar region; M54.16 Radiculopathy, lumbar region; M43.5X6 Other recurrent vertebral dislocation, lumbar region; F41.9 Anxiety disorder, unspecified; F32.9 Major depressive disorder, single episode, unspecified; F17.290 Nicotine dependence, other tobacco product, uncomplicated; B19.20 Unspecified viral hepatitis C without hepatic coma; Z20.828 Contact with and (suspected) exposure to other viral communicable diseases; M48.07 Spinal stenosis, lumbosacral region; X58.XXXS Exposure to other specified factors, sequela; S14.109S Unspecified injury at unspecified level of cervical spinal cord, sequela; Z23 Encounter for immunization; Z79.899 Other long term (current) drug therapy
CPT/HCPCS: 76000; 90471; 90662; 93005; 93010; C1713; C1768; G0008; J0171; J0690; J1100; J1170; J1885; J2310; J2405; J2704; J3010; J3370; J3490; Q0169; S0020

== ENCOUNTER 2020-09-14 07:58 | Outpatient (CLI) | payer OTHER ==
[2020-09-14 14:21] LABS: Hemoglobin 13.7 g/dL (14.0-18.0); Mean Corpuscular HGB CONC 32.1 g/dL (32.0-36.0); Mean Corpuscular Hemoglobin 30.9 pg (27.0-31.0); Mean Corpuscular Volume 96.4 fL (78.0-98.0); Mean Platelet Volume 7.4 fL (7.4-10.4); Platelet Count 191 thou/uL (130-400); RBC Distribution Width 12.4 % (11.5-14.5); Red Blood Cell (RBC) Count 4.42 mill/uL (4.70-6.10); White Blood Cell (WBC) Count 6.6 thou/uL (4.8-10.8)
[2020-09-15 11:00] LABS: SARS-CoV-2 MS2 Positive; SARS-CoV-2 N Gene Negative; SARS-CoV-2 S Gene Negative; SARS-CoV-2 by NAA Not Detected (NotDetected); SARS-CoV-2 orf1ab Negative
--- NOTE | 2020-09-17 12:02 | EKG ---
Test Reason : Blood Pressure : / mmHG Vent. Rate : 049 BPM Atrial Rate : 227 BPM P-R Int : 000 ms QRS Dur : 062 ms QT Int : 496 ms P-R-T Axes : 000 052 067 degrees QTc Int : 448 ms Junctional rhythm Septal infarct , age undetermined Abnormal ECG When compared with ECG of 14-SEP-2020 12:00, (Unconfirmed) Junctional rhythm has replaced Atrial flutter Septal infarct is now Present Confirmed by ROLANDO LONDON (2) on 09/17/2020 12:01:48 PM Referred By: SHARA Confirmed By:ROLANDO LONDON
== END 2020-09-14 07:59 | disposition home or self-care (01) ==
LOC: LABBT 07:58
PROVIDERS: ATTEND Neurological Surgery
DX: Z01.818 Encounter for other preprocedural examination (principal); Z20.828 Contact with and (suspected) exposure to other viral communicable diseases; M48.061 Spinal stenosis, lumbar region without neurogenic claudication; M43.16 Spondylolisthesis, lumbar region
CPT/HCPCS: 85027; 87635; 93005; 93010; U0003

== ENCOUNTER 2020-12-15 12:45 | Inpatient (IN) | payer OTHER ==
[2020-12-15] MEDS ORDERED: Ketorolac Tromethamine 30 MG/ML VIAL ONE (13:50)
[2020-12-15 14:14] LABS: Hemoglobin 14.6 g/dL (14.0-18.0); Mean Corpuscular HGB CONC 32.8 g/dL (32.0-36.0); Mean Corpuscular Volume 91.6 fL (78.0-98.0); Mean Platelet Volume 7.1 fL (7.4-10.4); Platelet Count 308 thou/uL (130-400); RBC Distribution Width 12.6 % (11.5-14.5); Red Blood Cell (RBC) Count 4.84 mill/uL (4.70-6.10)
[2020-12-15 14:37] LABS: ALT (SGPT) 29 U/L (8-55); AST (SGOT) 24 U/L (5-34); Albumin 3.9 g/dL (3.4-4.8); Alkaline Phosphatase 102 U/L (40-110); Anion Gap 25 mmol/L (10-20); Bilirubin, Total 0.4 mg/dL (0.2-1.2); Calc. Creatinine Clearance 0 mL/min (70-130); Calcium 9.7 mg/dL (7.8-10.44); Carbon Dioxide 23 mmol/L (23-31); Chloride 89 mmol/L (98-107); Globulin 4.4 g/dL (2.4-3.5); Glucose 121 mg/dL (80-115); Potassium 5.8 mmol/L (3.5-5.1); Protein, Total 8.3 g/dL (5.8-8.1); Sodium 131 mmol/L (136-145)
[2020-12-15 14:40] LABS: Band 5 % (5-11); Lymphocytes 9 % (21-51); MDiff Complete? YES; Monocytes 10 % (0-10); Neutrophil 76 % (42-75); Platelet Morphology Comment Appears Adequate; RBC Morphology Normal
[2020-12-15 14:49] LABS: BUN (Urea Nitrogen) 145 mg/dL (8.4-25.7)
[2020-12-15] MEDS ORDERED: Morphine 4 MG/ML VIAL ONE (15:02)
[2020-12-15] MEDS ORDERED: Labetalol HCl 100 MG/20 ML VIAL ONE (15:54)
[2020-12-15] MEDS ORDERED: Dextrose 50% Abboject 50 ML SYRINGE ONE (16:50)
[2020-12-15] MEDS ORDERED: Calcium Chloride 1 GM/10 ML Abboject SYRINGE ONE ×2 (16:50→17:10)
[2020-12-15] MEDS ORDERED: Sodium Bicarb 50 MEQ/50 ML VIAL ONE (16:50)
[2020-12-15] MEDS ORDERED: Insulin Regular 300 UNITS/3 ML VIAL ONE (16:59)
[2020-12-15 17:02] LABS: Bilirubin Negative (Negative); Blood, Urine 3+ (Negative); Clarity Turbid (Clear); Glucose, Urine (Dipstick) Normal (Negative); Ketone, Urine Negative (Negative); Leukocyte Negative Leu/uL (Negative); Nitrite Negative (Negative); Protein, Urine (Dipstick) 70 mg/dL (Neg-Trace); RBC/HPF Greater than 50 HPF (0-3); Specific Gravity, Urine 1.013 (1.002-1.036); Squamous Epithelial 0-3 HPF (0-3); Urobilinogen Normal mg/dL (Less than 2)
[2020-12-15 17:03] LABS: Bacteria/HPF 1+ HPF (None Seen)
[2020-12-15] MEDS ORDERED: Labetalol HCl 100 MG/20 ML VIAL SLOW IVP PRN (17:22)
[2020-12-15 20:14] LABS: SARS-CoV-2 NAA Rapid Test Not Detected (NotDetected)
[2020-12-15] MEDS: Morphine 2 MG/ML VIAL SLOW IVP PRN (22:21)
[2020-12-15] MEDS: Heparin 5,000 UNITS/ML VIAL SC SCH (22:22)
[2020-12-15] MEDS: Sodium Chloride 0.9% 1,000 ML IV SCH (22:22)
[2020-12-15 23:02] VITALS: BMI 17.2
[2020-12-16] MEDS: Sodium Chloride 0.9% 1,000 ML IV SCH ×3 (04:27→23:52)
[2020-12-16 06:50] LABS: #Lymphocytes 0.9 thou/uL (1.20-3.40); #Monocytes 1.7 thou/uL (0.11-0.59); #Neutrophils 12.8 thou/uL (1.40-6.50); %Basophils 0.1 % (0.0-1.0); %Eosinophils 0.1 % (0.0-10.0); %Lymphocytes 5.9 % (21.0-51.0); %Monocytes 10.9 % (0.0-10.0); Hemoglobin 12.5 g/dL (14.0-18.0); Mean Corpuscular Hemoglobin 29.9 pg (27.0-31.0); Mean Corpuscular Volume 90.6 fL (78.0-98.0); Mean Platelet Volume 7.1 fL (7.4-10.4); Platelet Count 261 thou/uL (130-400); RBC Distribution Width 12.4 % (11.5-14.5); Red Blood Cell (RBC) Count 4.18 mill/uL (4.70-6.10); White Blood Cell (WBC) Count 15.4 thou/uL (4.8-10.8)
[2020-12-16 07:28] LABS: ALT (SGPT) 19 U/L (8-55); AST (SGOT) 21 U/L (5-34); Albumin 2.9 g/dL (3.4-4.8); Alkaline Phosphatase 73 U/L (40-110); Anion Gap 16 mmol/L (10-20); BUN (Urea Nitrogen) 103 mg/dL (8.4-25.7); Bilirubin, Total 0.3 mg/dL (0.2-1.2); Calc. Creatinine Clearance 18 mL/min (70-130); Calcium 8.8 mg/dL (7.8-10.44); Carbon Dioxide 27 mmol/L (23-31); Chloride 103 mmol/L (98-107); Globulin 3.3 g/dL (2.4-3.5); Glucose 85 mg/dL (80-115); Potassium 4.1 mmol/L (3.5-5.1); Protein, Total 6.2 g/dL (5.8-8.1); Sodium 142 mmol/L (136-145)
[2020-12-16] MEDS: Heparin 5,000 UNITS/ML VIAL SC SCH ×3 (09:49→20:42)
[2020-12-16] MEDS: Morphine 2 MG/ML VIAL SLOW IVP PRN ×4 (09:49→23:57)
[2020-12-16] MEDS ORDERED: Polyethylene Glycol 3350 17 GM Packet PO PRN (12:51)
[2020-12-16] MEDS: cefTRIAXone\\ROCEPHIN 2 GM in Sodium Chloride 0.9% 100 ML IVPB SCH (14:12)
[2020-12-16] MEDS: Senokot S 8.6-50 MG TAB PO SCH (20:42)
[2020-12-16] MEDS: Tamsulosin HCl 0.4 MG CAP PO SCH (20:42)
[2020-12-17] MEDS: Morphine 2 MG/ML VIAL SLOW IVP PRN ×5 (05:15→22:07)
[2020-12-17 06:36] LABS: #Lymphocytes 1.5 thou/uL (1.20-3.40); #Monocytes 1.3 thou/uL (0.11-0.59); #Neutrophils 6.5 thou/uL (1.40-6.50); %Basophils 0.5 % (0.0-1.0); %Eosinophils 0.4 % (0.0-10.0); %Lymphocytes 16.2 % (21.0-51.0); %Monocytes 13.4 % (0.0-10.0); %Neutrophils 69.5 % (42.0-75.0); Hemoglobin 11.7 g/dL (14.0-18.0); Mean Corpuscular HGB CONC 32.7 g/dL (32.0-36.0); Mean Corpuscular Hemoglobin 30.2 pg (27.0-31.0); Mean Corpuscular Volume 92.5 fL (78.0-98.0); Mean Platelet Volume 6.7 fL (7.4-10.4); Platelet Count 261 thou/uL (130-400); RBC Distribution Width 12.3 % (11.5-14.5); Red Blood Cell (RBC) Count 3.88 mill/uL (4.70-6.10); White Blood Cell (WBC) Count 9.3 thou/uL (4.8-10.8)
[2020-12-17 06:59] LABS: ALT (SGPT) 16 U/L (8-55); AST (SGOT) 18 U/L (5-34); Albumin 2.6 g/dL (3.4-4.8); Alkaline Phosphatase 68 U/L (40-110); Anion Gap 12 mmol/L (10-20); BUN (Urea Nitrogen) 33 mg/dL (8.4-25.7); Bilirubin, Total 0.3 mg/dL (0.2-1.2); Calc. Creatinine Clearance 77 mL/min (70-130); Carbon Dioxide 30 mmol/L (23-31); Chloride 103 mmol/L (98-107); Globulin 3.1 g/dL (2.4-3.5); Glucose 96 mg/dL (80-115); Protein, Total 5.7 g/dL (5.8-8.1); Sodium 142 mmol/L (136-145)
[2020-12-17] MEDS: Senokot S 8.6-50 MG TAB PO SCH ×2 (08:49→20:19)
[2020-12-17] MEDS: Heparin 5,000 UNITS/ML VIAL SC SCH ×3 (08:49→20:19)
[2020-12-17] MEDS: Polyethylene Glycol 3350 17 GM Packet PO SCH (08:49)
[2020-12-17] MEDS ORDERED: Bisacodyl 10 MG SUPP PR PRN (11:16)
[2020-12-17] MEDS ORDERED: Magnesium Citrate 300 ML BOT PO SCH (11:30)
[2020-12-17] MEDS ORDERED: Potassium Chloride 20 MEQ TAB PO SCH (11:30)
[2020-12-17] MEDS: cefTRIAXone\\ROCEPHIN 2 GM in Sodium Chloride 0.9% 100 ML IVPB SCH (14:22)
[2020-12-17] MEDS: Potassium Chloride 20 MEQ TAB PO SCH (18:11)
[2020-12-17] MEDS: Sodium Chloride 0.45% 1,000 ML IV SCH (18:22)
[2020-12-17] MEDS: Tamsulosin HCl 0.4 MG CAP PO SCH (20:19)
[2020-12-18] MEDS: Morphine 2 MG/ML VIAL SLOW IVP PRN ×5 (01:57→23:02)
[2020-12-18 07:23] LABS: Anion Gap 11 mmol/L (10-20); BUN (Urea Nitrogen) 15 mg/dL (8.4-25.7); Calc. Creatinine Clearance 99 mL/min (70-130); Calcium 8.1 mg/dL (7.8-10.44); Carbon Dioxide 27 mmol/L (23-31); Chloride 102 mmol/L (98-107); Glucose 92 mg/dL (80-115); Potassium 4.1 mmol/L (3.5-5.1); Sodium 136 mmol/L (136-145)
[2020-12-18] MEDS: Senokot S 8.6-50 MG TAB PO SCH ×2 (09:02→19:20)
[2020-12-18] MEDS: Heparin 5,000 UNITS/ML VIAL SC SCH ×3 (09:02→19:20)
[2020-12-18] MEDS: Polyethylene Glycol 3350 17 GM Packet PO SCH (09:02)
[2020-12-18] MEDS: Potassium Chloride 20 MEQ TAB PO SCH ×2 (09:02→18:05)
[2020-12-18] MEDS ORDERED: METHadone HCl 10 MG TAB PO SCH (14:45)
[2020-12-18] MEDS: cefTRIAXone\\ROCEPHIN 2 GM in Sodium Chloride 0.9% 100 ML IVPB SCH (15:11)
[2020-12-18] MEDS: Sodium Chloride 0.45% 1,000 ML IV SCH (18:12)
[2020-12-18] MEDS: Tamsulosin HCl 0.4 MG CAP PO SCH (19:20)
[2020-12-19] MEDS: Morphine 2 MG/ML VIAL SLOW IVP PRN ×2 (03:35→08:56)
[2020-12-19] MEDS: Sodium Chloride 0.45% 1,000 ML IV SCH ×2 (05:20→13:25)
[2020-12-19] MEDS: Potassium Chloride 20 MEQ TAB PO SCH ×2 (08:59→17:56)
[2020-12-19] MEDS: Senokot S 8.6-50 MG TAB PO SCH ×2 (09:00→20:56)
[2020-12-19] MEDS: Polyethylene Glycol 3350 17 GM Packet PO SCH (09:00)
[2020-12-19] MEDS: Heparin 5,000 UNITS/ML VIAL SC SCH ×3 (09:00→20:56)
[2020-12-19] MEDS: METHadone HCl 10 MG TAB PO SCH (09:29)
[2020-12-19] MEDS: HYDROcodone/Acetaminophen 5/325 mg Tablet PO PRN ×3 (13:25→23:04)
[2020-12-19] MEDS: cefTRIAXone\\ROCEPHIN 2 GM in Sodium Chloride 0.9% 100 ML IVPB SCH (14:24)
[2020-12-19] MEDS: Tamsulosin HCl 0.4 MG CAP PO SCH (20:56)
[2020-12-20] MEDS: Sodium Chloride 0.45% 1,000 ML IV SCH ×3 (01:02→20:51)
[2020-12-20] MEDS: HYDROcodone/Acetaminophen 5/325 mg Tablet PO PRN ×2 (07:22→18:22)
[2020-12-20] MEDS: Heparin 5,000 UNITS/ML VIAL SC SCH ×3 (08:19→20:52)
[2020-12-20] MEDS: METHadone HCl 10 MG TAB PO SCH (08:19)
[2020-12-20] MEDS: Potassium Chloride 20 MEQ TAB PO SCH ×2 (08:20→16:37)
[2020-12-20] MEDS: Polyethylene Glycol 3350 17 GM Packet PO SCH (08:20)
[2020-12-20] MEDS: Senokot S 8.6-50 MG TAB PO SCH ×2 (08:20→20:52)
[2020-12-20] MEDS: cefTRIAXone\\ROCEPHIN 2 GM in Sodium Chloride 0.9% 100 ML IVPB SCH (14:40)
[2020-12-20] MEDS: Tamsulosin HCl 0.4 MG CAP PO SCH (20:52)
[2020-12-21] MEDS: HYDROcodone/Acetaminophen 5/325 mg Tablet PO PRN ×2 (07:21→17:55)
[2020-12-21] MEDS: Polyethylene Glycol 3350 17 GM Packet PO SCH (10:31)
[2020-12-21] MEDS: Heparin 5,000 UNITS/ML VIAL SC SCH ×3 (10:32→20:18)
[2020-12-21] MEDS: Potassium Chloride 20 MEQ TAB PO SCH (10:32)
[2020-12-21] MEDS: Senokot S 8.6-50 MG TAB PO SCH ×2 (10:32→20:18)
[2020-12-21] MEDS: METHadone HCl 10 MG TAB PO SCH (10:33)
[2020-12-21] MEDS: Sodium Chloride 0.45% 1,000 ML IV SCH (17:57)
[2020-12-21] MEDS: Tamsulosin HCl 0.4 MG CAP PO SCH (20:18)
[2020-12-22] MEDS: HYDROcodone/Acetaminophen 5/325 mg Tablet PO PRN ×3 (02:49→15:00)
[2020-12-22] MEDS ORDERED: Potassium Chloride 20 MEQ TAB PO SCH (09:00)
[2020-12-22] MEDS: METHadone HCl 10 MG TAB PO SCH (09:19)
[2020-12-22] MEDS: Senokot S 8.6-50 MG TAB PO SCH (09:19)
[2020-12-22] MEDS: Heparin 5,000 UNITS/ML VIAL SC SCH ×2 (09:19→15:00)
[2020-12-22] MEDS: Polyethylene Glycol 3350 17 GM Packet PO SCH (09:19)
[2020-12-22 11:46] VITALS: BP 122/73; TEMP 97.9
[2020-12-22] MEDS: Sodium Chloride 0.45% 1,000 ML IV SCH (12:15)
== END 2020-12-22 16:26 | DRG 682 ==
LOC: ERS 12:45 → ERHOLD 17:19 → SURG B 21:21
PROVIDERS: ADMIT Internal Medicine; ATTEND Family Medicine
DX: N17.9 Acute kidney failure, unspecified (principal); E43 Unspecified severe protein-calorie malnutrition; R64 Cachexia; Z68.1 Body mass index [BMI] 19.9 or less, adult; E87.1 Hypo-osmolality and hyponatremia; N13.30 Unspecified hydronephrosis; K59.00 Constipation, unspecified; M19.90 Unspecified osteoarthritis, unspecified site; E87.5 Hyperkalemia; R53.81 Other malaise; R14.0 Abdominal distension (gaseous); F32.9 Major depressive disorder, single episode, unspecified; D72.829 Elevated white blood cell count, unspecified; E89.0 Postprocedural hypothyroidism; L89.151 Pressure ulcer of sacral region, stage 1; F41.9 Anxiety disorder, unspecified; N18.30 Chronic kidney disease, stage 3 unspecified; I12.9 Hypertensive chronic kidney disease with stage 1 through stage 4 chronic kidney disease, or unspecified chronic kidney disease; E88.09 Other disorders of plasma-protein metabolism, not elsewhere classified; Z86.19 Personal history of other infectious and parasitic diseases; Z87.891 Personal history of nicotine dependence; Z98.890 Other specified postprocedural states; Z79.899 Other long term (current) drug therapy
CPT/HCPCS: 36415; 36416; 51702; 51798; 71045; 72125; 72141; 74176; 76770; 80048; 80053; 81003; 81015; 83605; 83880; 84153; 85025; 85652; 86140; 87040; 87086; 93005; 96365; 96375; J0696; J1644; J1815; J1885; J2270; J3490; U0002

== ENCOUNTER 2021-05-29 13:34 | Outpatient (CLI) | payer OTHER ==
[2021-05-29 16:52] LABS: Bilirubin Neg (Negative); Blood, Urine 150 (Negative); Clarity Slightly Cloudy (Clear); Glucose, Urine (Dipstick) Normal (Negative); Ketone, Urine Negative (Negative); Leukocyte 500 (Negative); Nitrite Positive (Negative); Protein, Urine (Dipstick) 30 mg/dl (Neg-Trace); Urobilinogen Normal mg/dL (Less than 2)
[2021-05-29 17:01] LABS: Bacteria/HPF 1+ HPF (None Seen); RBC/HPF 0-3 HPF (0-3); Squamous Epithelial 0-3 HPF (0-3); WBC/HPF 21-50 HPF (0-3)
[2021-05-29 17:02] LABS: Calcium Oxalate Crystals 3+ HPF (None Seen)
== END 2021-05-29 13:35 | disposition home or self-care (01) ==
LOC: LABBT 13:34
PROVIDERS: ATTEND Urology
DX: Z01.818 Encounter for other preprocedural examination (principal); M47.12 Other spondylosis with myelopathy, cervical region; M47.816 Spondylosis without myelopathy or radiculopathy, lumbar region; R33.9 Retention of urine, unspecified; B19.20 Unspecified viral hepatitis C without hepatic coma; K59.00 Constipation, unspecified
CPT/HCPCS: 81001; 87086; 93005; 93010

== ENCOUNTER 2021-05-31 10:28 | Day surgery (SDC) | payer OTHER ==
[2021-05-30 13:56] VITALS: BMI 18.3
[2021-05-31] MEDS ORDERED: Levofloxacin 500 mg/D5W 100 ml Premix Bag ONE (13:08)
[2021-05-31 14:32] LABS: PTT 28.9 sec (22.9-36.1); Prothrombin Time 12.7 sec (12.0-14.7)
[2021-05-31] MEDS ORDERED: Fentanyl 100 MCG/2 ML VIAL ONE (14:48)
[2021-05-31 15:27] LABS: SARS-CoV-2 NAA Rapid Test Not Detected (NotDetected)
[2021-05-31] MEDS ORDERED: Iothalamate Meglumine 60% 30 ML VIAL FS ONE (15:38)
[2021-05-31] MEDS ORDERED: PROPOFOL 200 MG/20 ML VIAL ONE (15:50)
[2021-05-31] MEDS ORDERED: Dexamethasone 20 MG/5 ML VIAL ONE (15:50)
[2021-05-31] MEDS ORDERED: Ondansetron PF 4 MG/2 ML Vial ONE (15:50)
[2021-05-31] MEDS ORDERED: Lidocaine 1% PF 5 ML VIAL ONE (15:50)
[2021-05-31] MEDS ORDERED: Promethazine HCl 25 MG/ML VIAL IM PRN (16:40)
[2021-05-31] MEDS ORDERED: Promethazine HCl 25 MG/ML VIAL IVPB PRN (16:40)
[2021-05-31] MEDS ORDERED: Ondansetron HCl/PF 4 MG/2 ML Vial IVP PRN (16:40)
[2021-05-31] MEDS ORDERED: Labetalol HCl 100 MG/20 ML VIAL ONE (17:30)
== END 2021-05-31 18:35 | disposition home or self-care (01) ==
LOC: SDC 10:28
PROVIDERS: ATTEND Urology
PROC: 0TCB8ZZ Extirpation of Matter from Bladder, Via Natural or Artificial Opening Endoscopic (ICD-10-PCS; principal; 2021-05-31)
PROC: 0VT08ZZ Resection of Prostate, Via Natural or Artificial Opening Endoscopic (ICD-10-PCS; principal; 2021-05-31)
DX: N40.1 Benign prostatic hyperplasia with lower urinary tract symptoms (principal); R33.8 Other retention of urine; N21.0 Calculus in bladder; F17.290 Nicotine dependence, other tobacco product, uncomplicated; B19.20 Unspecified viral hepatitis C without hepatic coma; M47.12 Other spondylosis with myelopathy, cervical region; M47.816 Spondylosis without myelopathy or radiculopathy, lumbar region; K59.00 Constipation, unspecified; Z79.899 Other long term (current) drug therapy; Z20.822 Contact with and (suspected) exposure to COVID-19
CPT/HCPCS: 36415; 82365; 85610; 85730; 88300; J1100; J1956; J2405; J2704; J3010; U0002; U0005